=== PATIENT | male | born 1965 | race African-American/Black ===

== ENCOUNTER 2017-08-06 17:03 | Inpatient (IN) | payer MEDICAID ==
[~2017-08-06] VITALS: Ht 180.3 cm; Wt 75.0 kg
[2017-08-06] VITALS (19 sets, daily range): BP systolic 147; BP diastolic 105; PULSE 73; TEMP 97.4; O2SAT 63–99
[~2017-08-06 17:03] MED LIST: LORTAB 5/500 501 TAB PO; XALATIN
[2017-08-06 17:30] LABS: COLLECTION METHOD CLEAN CATCH
[2017-08-06 17:39] LABS: PH 6 (5-8); SQUAMOUS EPITHELIAL 0-2 /hpf; URINE APPEARANCE Clear; URINE BACTERIA None Seen /hpf; URINE BILIRUBIN Negative (NEGATIVE); URINE BLOOD Negative (NEGATIVE); URINE COLOR Straw; URINE GLUCOSE Negative (NEGATIVE); URINE KETONE Negative (NEGATIVE); URINE LEUKOCYTE ESTERASE Negative (NEGATIVE); URINE NITRATE Negative (NEGATIVE); URINE PROTEIN(semi-quant) Negative (NEGATIVE); URINE RBC 0-2 /hpf
[2017-08-06 17:48] LABS: BASO % 0.4 % (0.0-2.0); EOS # 0.1 (0.0-0.7); EOS % 1.6 % (0-4.0); GRAN # 4.3 (1.4-6.5); GRAN % 52.6 % (42.2-75.2); HEMATOCRIT 44.4 % (42.0-52.0); HEMOGLOBIN 15.2 g/dl (13.5-18.0); LYMPH # 2.8 (1.2-3.4); LYMPH % 34.2 % (20.0-51.0); MEAN CELL VOLUME 88 fl (80.0-100.0); MEAN CORPUSCULAR HEMOGLOBIN 30 pg (27.0-31.0); MEAN CORPUSCULAR HGB CONC 34 g/dl (33.0-37.0); MEAN PLATELET VOLUME 9.5 fl (7.4-10.4); MONO # 0.9 (0.1-0.6); MONO % 10.8 % (1.7-9.3); PLATELET COUNT 277 K/mm3 (130-400); RED BLOOD COUNT 5.06 M/mm3 (4.20-5.60); REDCELL DISTRIBUTION WIDTH-CV 13.1 % (11.5-14.5)
[2017-08-06 17:56] LABS: TRICYCLIC ANTIDEPRESS URINE NEGATIVE
[2017-08-06 18:12] LABS: ACETAMINOPHEN < 10 ug/mL (10-30); ALANINE AMINOTRANSFERASE 38 U/L (21-72); ALBUMIN 4.2 gm/dL (3.5-5.0); ALCOHOL(ethanol),MEDICAL < 10 mg/dL; ALKALINE PHOSPHATASE 101 U/L (50-136); ANION GAP 14 mmol/L (7-16); AST,SGOT 57 U/L (15-37); BILIRUBIN,TOTAL 0.6 mg/dL (0.0-1.0); BLOOD UREA NITROGEN 14 mg/dL (9-20); CALCIUM 9.6 mg/dL (8.4-10.2); CARBON DIOXIDE 24 mmol/L (22-30); CHLORIDE 98 mmol/L (98-107); GLUCOSE 89 mg/dL (74-106); POTASSIUM 3.6 mmol/L (3.4-5.0); SALICYLATE < 1.0 mg/dL; SODIUM 137 mmol/L (137-145); TOTAL PROTEIN 8.6 gm/dL (6.4-8.2)
[2017-08-06 20:21] LABS: GLUCOSE,CSF 53 mg/dL (40-70); TOTAL PROTEIN,CSF 76 mg/dL (15-45)
[2017-08-06 21:03] LABS: CSF APPEARANCE CLEAR; CSF COLOR COLORLESS; CSF RBC 172 /mm3 (0-0)
[2017-08-06 21:07] LABS: CSF MONONUCLEAR 70 % (70-100); CSF POLYMORPHONUCLEAR 30 % (0-6)
[2017-08-06 21:11] LABS: CSF APPEARANCE CLEAR; CSF COLOR COLORLESS
[2017-08-06 21:12] LABS: CSF MONONUCLEAR 80 % (70-100); CSF POLYMORPHONUCLEAR 20 % (0-6); CSF RBC 6 /mm3 (0-0)
[2017-08-06 21:47] LABS: C-REACTIVE PROTEIN < 0.5 mg/dL (0.0-0.9)
[2017-08-06 21:55] LABS: TROPONIN-I < 0.012 ng/mL (0.000-0.034)
[2017-08-07] VITALS (771 sets, daily range): BP systolic 128–151; BP diastolic 91–100; PULSE 51–70; TEMP 97.4–100.2; O2SAT 86–100
[2017-08-07 06:14] LABS: BASO % 0.4 % (0.0-2.0); EOS # 0.1 (0.0-0.7); EOS % 1.2 % (0-4.0); GRAN # 2.6 (1.4-6.5); GRAN % 50.2 % (42.2-75.2); HEMATOCRIT 40.8 % (42.0-52.0); HEMOGLOBIN 13.8 g/dl (13.5-18.0); LYMPH # 1.8 (1.2-3.4); LYMPH % 35.7 % (20.0-51.0); MEAN CELL VOLUME 89 fl (80.0-100.0); MEAN CORPUSCULAR HEMOGLOBIN 30 pg (27.0-31.0); MEAN CORPUSCULAR HGB CONC 34 g/dl (33.0-37.0); MEAN PLATELET VOLUME 9.4 fl (7.4-10.4); MONO # 0.6 (0.1-0.6); MONO % 12.1 % (1.7-9.3); PLATELET COUNT 216 K/mm3 (130-400); RED BLOOD COUNT 4.58 M/mm3 (4.20-5.60)
[2017-08-07 06:24] LABS: CALCIUM 8.7 mg/dL (8.4-10.2); CREATININE, serum 0.77 mg/dL (0.66-1.25); POTASSIUM 3.6 mmol/L (3.4-5.0)
[2017-08-08 00:12] VITALS: BP 152/99; PULSE 52; TEMP 98.6
[2017-08-08 03:37] VITALS: BP 157/93; PULSE 54; TEMP 98.6
[2017-08-08 06:57] LABS: CALCIUM 8.8 mg/dL (8.4-10.2); CREATININE, serum 0.81 mg/dL (0.66-1.25); POTASSIUM 3.6 mmol/L (3.4-5.0)
[2017-08-08 07:00] LABS: BASO % 0.7 % (0.0-2.0); EOS # 0.3 (0.0-0.7); EOS % 5.9 % (0-4.0); GRAN # 2.9 (1.4-6.5); GRAN % 52.6 % (42.2-75.2); HEMATOCRIT 41.7 % (42.0-52.0); HEMOGLOBIN 14.2 g/dl (13.5-18.0); LYMPH # 1.6 (1.2-3.4); MEAN CELL VOLUME 89 fl (80.0-100.0); MEAN CORPUSCULAR HEMOGLOBIN 30 pg (27.0-31.0); MEAN CORPUSCULAR HGB CONC 34 g/dl (33.0-37.0); MEAN PLATELET VOLUME 9.9 fl (7.4-10.4); MONO # 0.6 (0.1-0.6); MONO % 11.3 % (1.7-9.3); PLATELET COUNT 231 K/mm3 (130-400); RED BLOOD COUNT 4.67 M/mm3 (4.20-5.60); REDCELL DISTRIBUTION WIDTH-CV 13.1 % (11.5-14.5)
[2017-08-08 08:06] VITALS: BP 127/87; PULSE 54; TEMP 97.7
[2017-08-08 11:14] VITALS: BP 148/99; PULSE 57; TEMP 98.9
[2017-08-08 15:43] VITALS: BP 140/82; PULSE 53; TEMP 98.7
[2017-08-08 19:26] VITALS: BP 138/79; PULSE 58; TEMP 98.5
[2017-08-09] VITALS (7 sets, daily range): BP systolic 107–150; BP diastolic 73–98; PULSE 51–72; TEMP 97.2–98.6
[2017-08-09 07:33] LABS: BASO % 0.6 % (0.0-2.0); EOS # 0.3 (0.0-0.7); GRAN # 2.9 (1.4-6.5); GRAN % 54.4 % (42.2-75.2); HEMATOCRIT 42.9 % (42.0-52.0); HEMOGLOBIN 14.5 g/dl (13.5-18.0); LYMPH # 1.5 (1.2-3.4); LYMPH % 28.4 % (20.0-51.0); MEAN CELL VOLUME 90 fl (80.0-100.0); MEAN CORPUSCULAR HEMOGLOBIN 30 pg (27.0-31.0); MEAN CORPUSCULAR HGB CONC 34 g/dl (33.0-37.0); MONO # 0.5 (0.1-0.6); MONO % 10.2 % (1.7-9.3); PLATELET COUNT 233 K/mm3 (130-400); RED BLOOD COUNT 4.79 M/mm3 (4.20-5.60); REDCELL DISTRIBUTION WIDTH-CV 12.8 % (11.5-14.5)
[2017-08-09 07:40] LABS: CALCIUM 9.1 mg/dL (8.4-10.2); CREATININE, serum 0.86 mg/dL (0.66-1.25); POTASSIUM 3.7 mmol/L (3.4-5.0)
[2017-08-10 04:10] VITALS: BP 141/84; PULSE 54; TEMP 98.7
[2017-08-10 07:10] VITALS: BP 135/85; PULSE 55; TEMP 97.8
[2017-08-10 07:13] LABS: BASO % 0.6 % (0.0-2.0); EOS # 0.3 (0.0-0.7); EOS % 5.4 % (0-4.0); GRAN # 2.8 (1.4-6.5); GRAN % 53.8 % (42.2-75.2); HEMATOCRIT 44.1 % (42.0-52.0); HEMOGLOBIN 14.9 g/dl (13.5-18.0); LYMPH # 1.5 (1.2-3.4); LYMPH % 28.6 % (20.0-51.0); MEAN CELL VOLUME 88 fl (80.0-100.0); MEAN CORPUSCULAR HEMOGLOBIN 30 pg (27.0-31.0); MEAN CORPUSCULAR HGB CONC 34 g/dl (33.0-37.0); MONO # 0.6 (0.1-0.6); MONO % 11.2 % (1.7-9.3); PLATELET COUNT 227 K/mm3 (130-400); RED BLOOD COUNT 4.99 M/mm3 (4.20-5.60)
[2017-08-10 07:26] LABS: CALCIUM 9.2 mg/dL (8.4-10.2); CREATININE, serum 0.9 mg/dL (0.66-1.25); POTASSIUM 3.9 mmol/L (3.4-5.0)
[2017-08-10 11:34] VITALS: BP 103/53; PULSE 94; TEMP 97.8
[2017-08-10 11:40] VITALS: BP 139/77; PULSE 50; TEMP 97.8
[2017-08-10 19:15] VITALS: BP 122/80; PULSE 67; TEMP 98.1
[2017-08-10 23:19] VITALS: BP 125/88; PULSE 61; TEMP 98.3
[2017-08-11 03:56] VITALS: BP 121/78; PULSE 61; TEMP 98.1
[2017-08-11 06:26] LABS: BASO % 0.6 % (0.0-2.0); EOS # 0.2 (0.0-0.7); EOS % 3.9 % (0-4.0); GRAN # 2.7 (1.4-6.5); GRAN % 53.9 % (42.2-75.2); HEMATOCRIT 41.9 % (42.0-52.0); LYMPH # 1.5 (1.2-3.4); MEAN CELL VOLUME 91 fl (80.0-100.0); MEAN CORPUSCULAR HEMOGLOBIN 30 pg (27.0-31.0); MEAN CORPUSCULAR HGB CONC 33 g/dl (33.0-37.0); MONO # 0.6 (0.1-0.6); MONO % 12.2 % (1.7-9.3); PLATELET COUNT 226 K/mm3 (130-400); RED BLOOD COUNT 4.63 M/mm3 (4.20-5.60); REDCELL DISTRIBUTION WIDTH-CV 13.1 % (11.5-14.5)
[2017-08-11 06:38] LABS: CALCIUM 9.1 mg/dL (8.4-10.2); CREATININE, serum 0.89 mg/dL (0.66-1.25); POTASSIUM 3.6 mmol/L (3.4-5.0)
[2017-08-11 07:15] VITALS: BP 144/90; PULSE 66; TEMP 98
[2017-08-11 11:27] VITALS: BP 138/83; PULSE 56; TEMP 97.7
[2017-08-11 15:02] VITALS: BP 129/81; PULSE 59; TEMP 98.4
[2017-08-11 19:35] VITALS: BP 126/87; PULSE 65; TEMP 98.1
[2017-08-11 23:25] VITALS: BP 150/83; PULSE 60; TEMP 98.6
[2017-08-12 03:50] VITALS: BP 131/80; PULSE 63; TEMP 98.3
[2017-08-12 08:16] VITALS: BP 132/97; PULSE 69; TEMP 99.2
== END 2017-08-12 12:15 | disposition home or self-care (01) | DRG 897 ==
LOC: COL.ER 17:03 → MEDICAL 22:20 → ICU 22:20 → MEDICAL 08-07 19:07
PROVIDERS: Emergency Medicine; Family Medicine; Internal Medicine; Nurse Practitioner; Physician Assistant
PROC: 009U3ZX Drainage of Spinal Canal, Percutaneous Approach, Diagnostic (ICD-10-PCS; principal; 2017-08-06)
DX: F12.151 Cannabis abuse with psychotic disorder with hallucinations (principal); F17.210 Nicotine dependence, cigarettes, uncomplicated; M48.02 Spinal stenosis, cervical region
CPT/HCPCS: 99223-AI; 99232-AI; A9585; J0133; J0696; J1200; J1650; J7030; J7050

== ENCOUNTER 2017-08-25 15:17 | Outpatient (RCR) | payer MEDICAID | END 2017-11-23 | disposition still patient (30) | LOC: WSST | DX: R48.9 Unspecified symbolic dysfunctions (principal); R41.82 Altered mental status, unspecified ==

== ENCOUNTER → 2017-11-19 | Outpatient (CLI) | payer MEDICAID | LOC: COL.RAD 10:30 | DX: M75.122 Complete rotator cuff tear or rupture of left shoulder, not specified as traumatic (principal); M94.8X1 Other specified disorders of cartilage, shoulder ==

== ENCOUNTER → 2018-07-31 | Outpatient (CLI) | payer MEDICAID | LOC: COL.RAD 09:28 | DX: M48.02 Spinal stenosis, cervical region (principal); M47.812 Spondylosis without myelopathy or radiculopathy, cervical region ==